=== PATIENT | female | born 1960 | race Caucasian/White ===

== ENCOUNTER → 2017-10-15 | Day surgery (SDC) | payer BC, MEDICARE ==
[2017-10-12 17:29] LABS: BASOPHILS % 0.4 % (0.0-1.0); EOSINOPHILS % 0.4 % (0.0-6.0); HEMATOCRIT 41.1 % (34.2-44.1); HEMOGLOBIN 13.1 g/dL (12.0-16.0); LYMPHOCYTES # (AUTO) 0.8 (1.0-3.2); LYMPHOCYTES % 10.3 % (18.0-39.1); MEAN CORPUSCULAR HEMOGLOBIN 32.2 pg (28-32); MEAN CORPUSCULAR HGB CONC 31.9 g/dL (31-35); MONOCYTES # (AUTO) 0.6 (0.2-0.8); NEUTROPHILS # (AUTO) 6.4 (2.1-6.9); NEUTROPHILS % 81.5 % (38.7-80.0); PLATELET COUNT 175 x10e3/uL (140-360); RED BLOOD COUNT 4.07 x10e6/uL (3.6-5.1); RED CELL DISTRIBUTION WIDTH 12.9 % (11.7-14.4)
[2017-10-12 17:45] LABS: ANION GAP 14.6 mmol/L (8-16); CALCIUM 10.8 mg/dL (8.4-10.2); CREATININE, SERUM 1.1 mg/dL (0.57-1.11); POTASSIUM 4.6 mmol/L (3.5-5.1)
[2017-10-12 18:03] LABS: INR 1.1; PROTHROMBIN TIME 13.4 seconds (11.9-14.5)
[2017-10-12 18:05] LABS: PARTIAL THROMBOPLASTIN TIME 25.5 seconds (23.8-35.5)
[~2017-10-15] MED LIST: ALENDRONATE SOD70 MG PO; AMLODIPINE BESYL5 MG PO; ATORVASTATIN CA20 MG PO; CEFAZOLIN SOD 1 GM VIAL ONE; DEXAMETHASONE SOD PHOS INJ 4 MG/ML VIAL ONE; ESCITALOPRAM OX10 MG PO; FENTANYL CITRATE/PF 100MCG/2 ML INJ ONE; LIDOCAINE 1% W/EPINEPHRINE 20 ML VIAL ONE; LIDOCAINE HCL 2% LOCAL INJ 5 ML SDV VIAL INJ ONE; METOPROLOL TART25 MG PO; MIDAZOLAM HCL 2 MG/2 ML VIAL ONE; MINERAL OIL STERILE 10ML VIAL ONE; MUPIROCIN 2% OINT 22 GM TUBE ONE; MYFORTIC360 MG PO; ONDANSETRON HCL INJ 2 MG/ML VIAL ONE; PREDNISONE5 MG PO; PROGRAF1 MG PO; PROPOFOL IV EMULSION 10 MG/ML 20 ML VIAL ONE; SEVOFLURANE INHAL SOLN 250 ML PEN BTL ONE; TEMAZEPAM15 MG PO
[2017-10-15 10:50] VITALS: BP 126/71
--- NOTE | 2017-10-15 10:56 | Operative Report ---
DATE OF PROCEDURE: October 15, 2017 PREOPERATIVE DIAGNOSIS: Squamous cell carcinoma, left breast. POSTOPERATIVE DIAGNOSIS: Wound, left breast 75 cm squared. PROCEDURE: Split-thickness skin grafting, left breast 75 cm squared. ANESTHESIA: General. HISTORY: The patient is a 57-year-old female who had Mohs micrographic removal of a squamous cell carcinoma involving the soft tissues on the left breast. 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 The risks, benefits, and alternative of treatments were discussed with the patient and she is prepared to undergo the procedure as outlined. DETAILS OF PROCEDURE: Patient was marked preoperatively in the holding area. She was brought to the operating theater. After the induction of adequate general anesthesia, she was prepped and draped in a supine position. A time-out was performed. The procedure was begun by gently excising the edges of the wound to freshen them up and take out all the partial thickness defect. The dimensions of the wound were measured. The left anterior thigh, which was prepped and draped has a split-thickness skin graft. Skin graft harvested using a dermatome. A graft of approximately 14 thousands of an inch thickness was harvested and then meshed in 1.5:1 fashion. The graft was placed on to the wound of the left breast and secured using surgical clips. At this point, 4-0 silk sutures were placed circumferentially on the left breast. Bactroban ointment, Xeroform gauze and sterile cotton balls were placed and 4-0 silk sutures were tied creating a bolster type dressing. The wound on the left thigh is cleansed and then irrigated with 1% Xylocaine with epinephrine. Bactroban ointment and a sterile dressing were applied. The patient tolerated the procedure well and was brought to recovery room in satisfactory condition. Discharged with a postoperative instruction sheet as well as a followup appointment. Job#: [id number]
== END | disposition home or self-care (01) ==
LOC: OR 06:09
PROVIDERS: ATTEND Plastic Surgery
DX: Z48.3 Aftercare following surgery for neoplasm (principal); Z85.828 Personal history of other malignant neoplasm of skin; I10 Essential (primary) hypertension; N28.9 Disorder of kidney and ureter, unspecified; Z94.0 Kidney transplant status; F41.9 Anxiety disorder, unspecified; Z88.8 Allergy status to other drugs, medicaments and biological substances; Z01.810 Encounter for preprocedural cardiovascular examination; Z01.812 Encounter for preprocedural laboratory examination
CPT/HCPCS: 15100; 36415; 80048; 85025; 85610; 85730; 93005; J0690; J1100; J2001; J2250; J2405